=== PATIENT | female | born 1990 | race Two or more races ===

== ENCOUNTER → 2019-12-25 | Outpatient (CLI) | payer OTHER ==
[~2019-12-25] MED LIST: PERCOCET 5/3251 TAB PO
== END | disposition home or self-care (01) ==
LOC: PRENATAL 13:00
PROVIDERS: ATTEND Obstetrics & Gynecology
DX: O36.80X1 Pregnancy with inconclusive fetal viability, fetus 1 (principal)

== ENCOUNTER → 2020-02-19 | Outpatient (CLI) | payer OTHER | END | disposition home or self-care (01) | LOC: PRENATAL 11:00 | PROVIDERS: ATTEND Obstetrics & Gynecology Maternal & Fetal Medicine | DX: O35.0XX1 Maternal care for (suspected) central nervous system malformation in fetus, fetus 1 (principal); O35.3XX1 Maternal care for (suspected) damage to fetus from viral disease in mother, fetus 1; O98.512 Other viral diseases complicating pregnancy, second trimester; Z36.89 Encounter for other specified antenatal screening; Z3A.20 20 weeks gestation of pregnancy ==

== ENCOUNTER 2020-06-20 16:07 | Inpatient (IN) | payer OTHER ==
[~2020-06-20] VITALS: Ht 165.1 cm; Wt 75.3 kg
[2020-06-20] MEDS ORDERED: PRENATAL CAPLE1 EAC1 PO (18:10)
== END 2020-06-21 14:17 | disposition home or self-care (01) | DRG 833 ==
LOC: LDR 16:07 → O/R 21:21 → LDR 21:23
PROVIDERS: ADMIT Obstetrics & Gynecology; ATTEND Obstetrics & Gynecology
PROC: 4A1HXFZ Monitoring of Products of Conception, Cardiac Rhythm, External Approach (ICD-10-PCS; principal; 2020-06-21)
DX: O36.8330 Maternal care for abnormalities of the fetal heart rate or rhythm, third trimester, not applicable or unspecified (principal); O36.8130 Decreased fetal movements, third trimester, not applicable or unspecified; Z3A.37 37 weeks gestation of pregnancy

== ENCOUNTER 2023-04-09 18:33 | Emergency (ER) | payer OTHER ==
[~2023-04-09] VITALS: Ht 165.1 cm; Wt 61.7 kg
[~2023-04-09 18:33] MED LIST changes: +PRENATAL CAPLE1 EAC1 PO
== END 2023-04-09 22:39 | disposition home or self-care (01) ==
LOC: ER 18:33
PROVIDERS: General Practice
DX: O20.9 Hemorrhage in early pregnancy, unspecified (principal); Z3A.08 8 weeks gestation of pregnancy

== ENCOUNTER 2023-06-12 12:19 | Outpatient (CLI) | payer OTHER | END 2023-06-12 12:20 | disposition home or self-care (01) | LOC: PRENATAL 12:19 | PROVIDERS: ATTEND Obstetrics & Gynecology Maternal & Fetal Medicine | DX: O26.849 Uterine size-date discrepancy, unspecified trimester (principal); Z36.0 Encounter for antenatal screening for chromosomal anomalies; Z3A.16 16 weeks gestation of pregnancy ==

== ENCOUNTER 2023-07-08 12:19 | Outpatient (CLI) | payer OTHER | END 2023-07-08 12:22 | disposition home or self-care (01) | LOC: PRENATAL 12:19 | PROVIDERS: ATTEND Obstetrics & Gynecology Maternal & Fetal Medicine | DX: O35.9XX0 Maternal care for (suspected) fetal abnormality and damage, unspecified, not applicable or unspecified (principal); O44.00 Complete placenta previa NOS or without hemorrhage, unspecified trimester; Z3A.19 19 weeks gestation of pregnancy ==

== ENCOUNTER 2023-10-02 12:18 | Outpatient (CLI) | payer OTHER | END 2023-10-02 12:19 | disposition home or self-care (01) | LOC: PRENATAL 12:18 | PROVIDERS: ATTEND Obstetrics & Gynecology Maternal & Fetal Medicine | DX: O26.849 Uterine size-date discrepancy, unspecified trimester (principal); O36.8199 Decreased fetal movements, unspecified trimester, other fetus; Z3A.32 32 weeks gestation of pregnancy ==

== ENCOUNTER 2023-11-16 00:49 | Inpatient (IN) | payer OTHER ==
[~2023-11-16] VITALS: Ht 165.1 cm; Wt 75.3 kg
[2023-11-16] MEDS ORDERED: CEFAZOLIN SODIUM 1,000 MG VIAL ONE (00:58)
[2023-11-16] MEDS ORDERED: CLEOCIN HCL300 MG PO (01:09)
[2023-11-16] MEDS ORDERED: RINGERS SOLUTION,LACTATED 1,000 ML IV SCH (01:30)
[2023-11-16] MEDS ORDERED: CEFAZOLIN SODIUM 1,000 MG VIAL IV ONE (01:30)
[2023-11-16] MEDS ORDERED: ERYTHROMYCIN BASE 1 GM TUBE OP ONE (02:35)
[2023-11-16] MEDS ORDERED: CHLORHEXIDINE GLUCONATE 120 ML BOTTLE TOP ONE (02:35)
[2023-11-16] MEDS ORDERED: OXYTOCIN 20 UNITS/1000ML RL PIGGYBAG IV ONE (02:35)
[2023-11-16 02:38] LABS: PH,URINE 7.5 (5.0-8.0); URINE APPEARANCE Clear; URINE BILIRRUBIN Negative (NEGATIVE); URINE BLOOD Negative; URINE COLOR Yellow; URINE GLUCOSE Negative (NEGATIVE); URINE LEUKOCYTE Negative; URINE NITRATE Negative; URINE PROTEIN Negative (NEGATIVE); URINE UROBILINOGEN 0.2 E.U./dl
[2023-11-16 02:40] LABS: HEMATOCRIT 41.5 % (36.0-45.00); HEMOGLOBIN 14.5 g/dL (12.0-15.00); MEAN CELL VOLUME 90.2 fL (80.00-100.00); MEAN CORPUSCULAR HEMOGLOBIN 31.6 pg (27.00-32.0); PLATELET COUNT 232 K/uL (150-450)
[2023-11-16 02:41] LABS: URINE BACTERIA 35.2 uL (0.0-1933); URINE EPITHELIAL CELLS 4.1 uL (0.0-38.8)
[2023-11-16 02:59] LABS: INR 0.95; PARTIAL THROMBOPLASTIN TIME 28.4 SECONDS (22.0-34.0)
[2023-11-16 03:04] LABS: URINE RBC 0.2 uL (0.0-20.8); URINE WBC 1.5 uL (0.0-23.2)
[2023-11-16] MEDS ORDERED: ERYTHROMYCIN BASE 1 GM TUBE OP SCH (03:30)
[2023-11-16] MEDS ORDERED: ACETAMINOPHEN 500 MG GEL..CAP PO PRN (03:30)
[2023-11-16] MEDS ORDERED: OXYTOCIN 1,000 ML IV SCH (03:30)
[2023-11-16] MEDS ORDERED: CHLORHEXIDINE GLUCONATE 120 ML BOTTLE TOP SCH (03:30)
[2023-11-16 08:01] LABS: HEMATOCRIT 36.9 % (36.0-45.00); HEMOGLOBIN 12.8 g/dL (12.0-15.00); MEAN CELL VOLUME 90.9 fL (80.00-100.00); MEAN CORPUSCULAR HEMOGLOBIN 31.5 pg (27.00-32.0); MEAN CORPUSCULAR HGB CONC 34.6 g/dl (32.0-36.0); PLATELET COUNT 208 K/uL (150-450); RED BLOOD COUNT 4.05 M/uL (4.00-6.00); RED CELL DISTRIBUTION WIDTH 12.9 % (11.5-14.5)
[2023-11-16] MEDS ORDERED: PNV,CALCIUM 72/IRON/FOLIC ACID 1 TAB TABLET PO SCH (09:00)
[2023-11-16] MEDS ORDERED: LORATADINE/PSEUDOEPHEDRINE 1 TAB TAB.SR.12H PO SCH (20:16)
== END 2023-11-18 15:47 | disposition home or self-care (01) | DRG 807 ==
LOC: LDR 00:49 → OB/GYN 00:49
PROVIDERS: Obstetrics & Gynecology; ADMIT Obstetrics & Gynecology; ATTEND Obstetrics & Gynecology
PROC: 10E0XZZ Delivery of Products of Conception, External Approach (ICD-10-PCS; principal; 2023-11-16)
PROC: 4A1HXCZ Monitoring of Products of Conception, Cardiac Rate, External Approach (ICD-10-PCS; 2023-11-16)
DX: O80 Encounter for full-term uncomplicated delivery (principal); Z37.0 Single live birth; Z3A.38 38 weeks gestation of pregnancy; Z20.822 Contact with and (suspected) exposure to COVID-19